=== PATIENT | female | born 2005 | race Two or more races ===

== ENCOUNTER 2025-04-07 23:58 | Emergency (ER) | payer OTHER ==
[2025-04-08] MEDS ORDERED: diphenhydrAMINE 25 MG CAP ONE (00:17)
[2025-04-08] MEDS ORDERED: Famotidine 20 MG TAB ONE (00:18)
[2025-04-08] MEDS ORDERED: predniSONE 20 MG TAB ONE (00:30)
== END 2025-04-08 00:45 | disposition home or self-care (01) ==
LOC: CSHERS 23:58
DX: L50.0 Allergic urticaria (principal); L73.2 Hidradenitis suppurativa
CPT/HCPCS: 99282; J0169; J2919; J7512